=== PATIENT | female | born 1960 | race Caucasian/White ===

== ENCOUNTER 2016-09-27 16:43 | Inpatient (IN) | payer MEDICARE, MEDICAID ==
[~2016-09-27] VITALS: Ht 162.6 cm; Wt 70.9 kg
[2016-09-27] MEDS ORDERED: SODIUM CHLORIDE FLUSH 10ML SYR IVF ONE (17:00)
[2016-09-27] MEDS ORDERED: SODIUM CHLORIDE 0.9% 1,000ML IVBOLUS ONE (17:00)
[2016-09-27] MEDS ORDERED: ASPI-496 PO (17:27)
[2016-09-27] MEDS ORDERED: ATOR40TA78 PO (17:29)
[2016-09-27] MEDS ORDERED: BACL-19 PO (17:29)
[2016-09-27] MEDS ORDERED: FING0.5C3 PEG (17:29)
[2016-09-27] MEDS ORDERED: LISI5TAB7 PO (17:29)
[2016-09-27] MEDS ORDERED: GABA-826 PO (17:29)
[2016-09-27] MEDS ORDERED: PLEASE ENTER HEIGHT AND WEIGHT MC SCH (17:30)
[2016-09-27] MEDS ORDERED: TRAZ50TA18 PO (17:30)
[2016-09-27] MEDS ORDERED: CHOL2000 PO (17:30)
[2016-09-27] MEDS ORDERED: DIPH25CA61 PO (17:30)
[2016-09-27 17:38] LABS: BLOOD UREA NITROGEN 33 mg/dL (7-18)
[2016-09-27 17:41] LABS: ASPARTATE AMINO TRANSFERASE 31 U/L (15-37)
[2016-09-27 17:49] LABS: ACETAMINOPHEN < 2 mcg/mL (10-30)
[2016-09-27] MEDS ORDERED: SODIUM CHLORIDE FLUSH 10ML SYR IVF PRN (18:30)
[2016-09-27] MEDS ORDERED: DOCUSATE 100 MG CAPSULE PO PRN (19:00)
[2016-09-27] MEDS ORDERED: ACETAMINOPHEN 325 MG TABLET PO PRN (19:00)
[2016-09-27] MEDS ORDERED: POLYETHYLENE GLYCOL 17 GM PACKET PO PRN (19:00)
[2016-09-27] MEDS ORDERED: ONDANSETRON 2MG/ML, 2ML IVPush PRN (19:00)
[2016-09-27] MEDS ORDERED: morphine SULFATE 10 MG/ML, 1ML IVPush PRN (19:00)
[2016-09-27] MEDS ORDERED: BISACODYL 10 MG SUPP PR PRN (19:00)
[2016-09-27] MEDS ORDERED: LABETALOL 5MG/ML 40ML VIAL IVPush PRN (19:00)
[2016-09-27] MEDS ORDERED: NS + 20MEQ KCL 1,000 ML IV SCH (21:30)
[2016-09-27] MEDS ORDERED: OXYB5TAB PO (21:46)
[2016-09-27] MEDS: ENOXAPARIN 40 MG/0.4 ML SQ SCH (21:52)
[2016-09-27 22:13] VITALS: BP 128/77
[2016-09-27] MEDS: LORazepam 1MG TABLET PO PRN (23:23)
[2016-09-28] MEDS: LACTULOSE 20 GM/30 ML UDC PO SCH ×2 (02:18→09:58)
[2016-09-28 03:26] VITALS: BP 131/79
[2016-09-28 03:27] LABS: DAU SCREEN DISCLAIMER
[2016-09-28 06:20] LABS: BLOOD UREA NITROGEN 31 mg/dL (7-18)
[2016-09-28 07:15] VITALS: BP 126/76
[2016-09-28 12:24] VITALS: BP 144/87
[2016-09-28] MEDS ORDERED: BACLOFEN 10 MG TABLET PO SCH (16:30)
[2016-09-28] MEDS: ASPIRIN 81 MG TABLET EC PO SCH (17:43)
[2016-09-28] MEDS: FINGOLIMOD HCL 0.5 MG PEG SCH (17:44)
[2016-09-28] MEDS: LISINOPRIL 5 MG TABLET PO SCH (17:45)
[2016-09-28 19:09] VITALS: BP 149/77
[2016-09-28] MEDS: OXYBUTYNIN CHLORIDE 5 MG HOMEMEDPO SCH (20:41)
[2016-09-28] MEDS: ATORVASTATIN 40 MG TABLET HOMEMEDPO SCH (20:42)
[2016-09-28] MEDS: GABAPENTIN 100 MG CAPSULE HOMEMEDPO SCH (20:43)
[2016-09-28] MEDS: AMOXICILLIN 500 MG CAPSULE HOMEMEDPO SCH (20:44)
[2016-09-28] MEDS: TRAZODONE 50MG TABLET HOMEMEDPO SCH (21:00)
[2016-09-28] MEDS: BACLOFEN 10 MG TABLET HOMEMEDPO SCH (21:00)
[2016-09-28] MEDS: ENOXAPARIN 40 MG/0.4 ML SQ SCH (22:40)
[2016-09-28 23:23] VITALS: BP 129/72
[2016-09-29 03:07] VITALS: BP 130/74
[2016-09-29] MEDS: AMOXICILLIN 500 MG CAPSULE HOMEMEDPO SCH ×3 (03:26→18:15)
[2016-09-29 06:04] LABS: BLOOD UREA NITROGEN 26 mg/dL (7-18)
[2016-09-29 07:10] VITALS: BP 123/79
[2016-09-29] MEDS: BACLOFEN 10 MG TABLET HOMEMEDPO SCH ×3 (09:00→20:57)
[2016-09-29] MEDS: GABAPENTIN 100 MG CAPSULE HOMEMEDPO SCH ×2 (09:00→20:57)
[2016-09-29] MEDS: LISINOPRIL 5 MG TABLET PO SCH (09:00)
[2016-09-29] MEDS: OXYBUTYNIN CHLORIDE 5 MG HOMEMEDPO SCH ×2 (09:00→20:59)
[2016-09-29] MEDS: FINGOLIMOD HCL 0.5 MG PEG SCH (09:00)
[2016-09-29] MEDS: ASPIRIN 81 MG TABLET EC PO SCH (09:05)
[2016-09-29] MEDS: CHOLECALCIFEROL 1,000 UNIT TABLET PO SCH (09:05)
[2016-09-29] MEDS: LORazepam 1MG TABLET PO PRN (12:18)
[2016-09-29] MEDS: HYDROcodone/APAP 5/325 TABLET PO PRN (12:19)
[2016-09-29] MEDS ORDERED: GADOBUTROL 7.5 MMOL/7.5 ML PFS ONE (17:06)
[2016-09-29 19:04] VITALS: BP 146/70
[2016-09-29] MEDS: TRAZODONE 50MG TABLET HOMEMEDPO SCH (20:56)
[2016-09-29] MEDS: ATORVASTATIN 40 MG TABLET HOMEMEDPO SCH (20:58)
[2016-09-29] MEDS: ENOXAPARIN 40 MG/0.4 ML SQ SCH (20:59)
[2016-09-30] MEDS: HYDROcodone/APAP 5/325 TABLET PO PRN (00:03)
[2016-09-30] MEDS: LORazepam 1MG TABLET PO PRN (00:03)
[2016-09-30] MEDS: AMOXICILLIN 500 MG CAPSULE HOMEMEDPO SCH ×4 (00:20→19:00)
[2016-09-30 02:00] VITALS: BP 121/69
[2016-09-30 06:50] VITALS: BP 138/78
[2016-09-30] MEDS: ASPIRIN 81 MG TABLET EC PO SCH (08:47)
[2016-09-30] MEDS: CHOLECALCIFEROL 1,000 UNIT TABLET PO SCH (08:47)
[2016-09-30] MEDS: OXYBUTYNIN CHLORIDE 5 MG HOMEMEDPO SCH ×2 (08:49→20:03)
[2016-09-30] MEDS: BACLOFEN 10 MG TABLET HOMEMEDPO SCH ×3 (08:50→20:04)
[2016-09-30] MEDS: GABAPENTIN 100 MG CAPSULE HOMEMEDPO SCH ×2 (08:52→20:05)
[2016-09-30] MEDS: FINGOLIMOD HCL 0.5 MG PEG SCH (08:53)
[2016-09-30] MEDS: LISINOPRIL 5 MG TABLET PO SCH (08:54)
[2016-09-30 12:55] VITALS: BP 134/72
[2016-09-30 18:28] VITALS: BP 127/71
[2016-09-30] MEDS: ATORVASTATIN 40 MG TABLET HOMEMEDPO SCH (20:05)
[2016-09-30] MEDS: ENOXAPARIN 40 MG/0.4 ML SQ SCH (20:05)
[2016-09-30] MEDS: TRAZODONE 50MG TABLET HOMEMEDPO SCH (21:00)
[2016-09-30] MEDS: DIPHENHYDRAMINE 25 MG CAPSULE PO PRN (21:30)
[2016-10-01] MEDS: AMOXICILLIN 500 MG CAPSULE HOMEMEDPO SCH ×2 (00:58→07:00)
[2016-10-01 01:27] VITALS: BP 113/58
[2016-10-01 07:35] VITALS: BP 126/73
[2016-10-01] MEDS: GABAPENTIN 100 MG CAPSULE HOMEMEDPO SCH ×2 (09:00→21:00)
[2016-10-01] MEDS: OXYBUTYNIN CHLORIDE 5 MG HOMEMEDPO SCH ×2 (09:00→21:00)
[2016-10-01] MEDS: LISINOPRIL 5 MG TABLET PO SCH (09:00)
[2016-10-01] MEDS: FINGOLIMOD HCL 0.5 MG PEG SCH (09:00)
[2016-10-01] MEDS: BACLOFEN 10 MG TABLET HOMEMEDPO SCH ×3 (09:00→21:00)
[2016-10-01] MEDS: CHOLECALCIFEROL 1,000 UNIT TABLET PO SCH (09:26)
[2016-10-01] MEDS ORDERED: OMNIPAQUE 350 MG/ML, 100ML BOTTLE ONE (09:26)
[2016-10-01] MEDS: ASPIRIN 81 MG TABLET EC PO SCH (09:26)
[2016-10-01 14:00] VITALS: BP 126/76
[2016-10-01] MEDS ORDERED: BISACODYL 10 MG SUPP PR PRN (20:00)
[2016-10-01] MEDS ORDERED: ACETAMINOPHEN 325 MG TABLET PO PRN (20:00)
[2016-10-01] MEDS ORDERED: POLYETHYLENE GLYCOL 17 GM PACKET PO PRN (20:00)
[2016-10-01 20:50] VITALS: BP 136/79
[2016-10-01] MEDS: ATORVASTATIN 40 MG TABLET HOMEMEDPO SCH (21:00)
[2016-10-01] MEDS: TRAZODONE 50MG TABLET HOMEMEDPO SCH (21:00)
[2016-10-01] MEDS: ENOXAPARIN 40 MG/0.4 ML SQ SCH (21:53)
[2016-10-01] MEDS: DIPHENHYDRAMINE 25 MG CAPSULE PO PRN (21:59)
[2016-10-02 01:57] VITALS: BP 125/73
[2016-10-02 07:49] VITALS: BP 130/79
[2016-10-02] MEDS: CHOLECALCIFEROL 1,000 UNIT TABLET PO SCH (09:31)
[2016-10-02] MEDS: ASPIRIN 81 MG TABLET EC PO SCH (09:32)
[2016-10-02] MEDS: BACLOFEN 10 MG TABLET HOMEMEDPO SCH ×3 (09:33→21:00)
[2016-10-02] MEDS: OXYBUTYNIN CHLORIDE 5 MG HOMEMEDPO SCH ×2 (09:33→21:00)
[2016-10-02] MEDS: GABAPENTIN 100 MG CAPSULE HOMEMEDPO SCH ×2 (09:34→21:00)
[2016-10-02] MEDS: FINGOLIMOD HCL 0.5 MG PEG SCH (09:34)
[2016-10-02] MEDS: LISINOPRIL 5 MG TABLET PO SCH (09:34)
[2016-10-02 13:45] VITALS: BP 128/77
[2016-10-02 19:35] VITALS: BP 151/83
[2016-10-02] MEDS: ATORVASTATIN 40 MG TABLET HOMEMEDPO SCH (21:00)
[2016-10-02] MEDS: TRAZODONE 50MG TABLET HOMEMEDPO SCH (21:00)
[2016-10-02] MEDS: ENOXAPARIN 40 MG/0.4 ML SQ SCH (21:07)
[2016-10-02] MEDS: DIPHENHYDRAMINE 25 MG CAPSULE PO PRN (21:07)
[2016-10-03 01:55] VITALS: BP 134/77
[2016-10-03 03:29] VITALS: BP 126/74
[2016-10-03 07:38] VITALS: BP 133/73
[2016-10-03] MEDS: ASPIRIN 81 MG TABLET EC PO SCH (07:58)
[2016-10-03] MEDS: CHOLECALCIFEROL 1,000 UNIT TABLET PO SCH (07:58)
[2016-10-03] MEDS: BACLOFEN 10 MG TABLET HOMEMEDPO SCH (07:59)
[2016-10-03] MEDS: LISINOPRIL 5 MG TABLET PO SCH (07:59)
[2016-10-03] MEDS: GABAPENTIN 100 MG CAPSULE HOMEMEDPO SCH ×2 (07:59→21:00)
[2016-10-03] MEDS: FINGOLIMOD HCL 0.5 MG PEG SCH (08:00)
[2016-10-03] MEDS: OXYBUTYNIN CHLORIDE 5 MG HOMEMEDPO SCH ×2 (08:00→21:00)
[2016-10-03] MEDS ORDERED: PRED10TA PO (12:52)
[2016-10-03] MEDS: BACLOFEN 10 MG TABLET PO SCH ×2 (16:28→21:07)
[2016-10-03] MEDS: TRAZODONE 50MG TABLET HOMEMEDPO SCH (21:00)
[2016-10-03] MEDS: ATORVASTATIN 40 MG TABLET HOMEMEDPO SCH (21:00)
[2016-10-03] MEDS: ENOXAPARIN 40 MG/0.4 ML SQ SCH (21:06)
[2016-10-03] MEDS: DIPHENHYDRAMINE 25 MG CAPSULE PO PRN (21:18)
[2016-10-03 21:44] VITALS: BP 146/75
[2016-10-04 06:58] VITALS: BP 141/78
[2016-10-04] MEDS: OXYBUTYNIN CHLORIDE 5 MG HOMEMEDPO SCH (09:14)
[2016-10-04] MEDS: GABAPENTIN 100 MG CAPSULE HOMEMEDPO SCH (09:14)
[2016-10-04] MEDS: ASPIRIN 81 MG TABLET EC PO SCH (09:14)
[2016-10-04] MEDS: BACLOFEN 10 MG TABLET PO SCH (09:14)
[2016-10-04] MEDS: CHOLECALCIFEROL 1,000 UNIT TABLET PO SCH (09:14)
[2016-10-04] MEDS: LISINOPRIL 5 MG TABLET PO SCH (09:15)
[2016-10-04] MEDS: FINGOLIMOD HCL 0.5 MG PEG SCH (09:15)
== END 2016-10-04 11:50 | disposition home or self-care (01) | DRG 60 ==
LOC: ED 19:39 → EDIP 21:08 → 4EST 21:16 → 4WST 09-29 13:21
PROVIDERS: ADMIT Internal Medicine; ATTEND Internal Medicine
DX: G35 Multiple sclerosis (principal); R27.0 Ataxia, unspecified; I11.9 Hypertensive heart disease without heart failure; R47.81 Slurred speech; F31.9 Bipolar disorder, unspecified; R29.2 Abnormal reflex; F20.9 Schizophrenia, unspecified; Z90.49 Acquired absence of other specified parts of digestive tract; Z79.82 Long term (current) use of aspirin; Z86.73 Personal history of transient ischemic attack (TIA), and cerebral infarction without residual deficits; Z90.89 Acquired absence of other organs; Z98.51 Tubal ligation status; Z88.5 Allergy status to narcotic agent; G31.9 Degenerative disease of nervous system, unspecified; M79.661 Pain in right lower leg; R79.89 Other specified abnormal findings of blood chemistry
CPT/HCPCS: 36415; 70450; 70498; 70544; 70547; 70553; 71010; 72156; 72157; 72158; 80048; 80053; 80307; 80329; 81003; 82140; 82607; 82746; 83735; 84443; 85025; 85610; 85651; 85730; 93005; 93306; 96360; 96361; A9585; J1650; J2930; J3480; Q9967; G0480; J7030; Q0163

== ENCOUNTER 2018-06-06 12:02 | Inpatient (IN) | payer MEDICARE, MEDICAID ==
[~2018-06-06] VITALS: Ht 162.6 cm; Wt 61.6 kg
[~2018-06-06 12:02] MED LIST: ASPI-496 PO; ATOR40TA78 PO; BACL-19 PO; CHOL2000 PO; DIPH25CA61 PO; FING0.5C3 PEG; GABA-826 PO; LISI5TAB7 PO; OXYB5TAB PO; PRED10TA PO; TRAZ50TA66 PO
--- NOTE | 2018-06-06 12:50 | NUR ---
pt presented to ed with daughters. per daughters, pt was walking and developled left leg drag since 11:00 am. Per daughters pt was more altered. pt with hx: ms and previous cva. pt a&ox4. pt with michelle and she stating " i just dont feel like im all there. code neuro called and md at bedside.
[2018-06-06 13:12] LABS: INTERNATIONAL NORMALIZED RATIO 0.92 (0.93-1.1); PROTHROMBIN TIME 9.7 Seconds (9.6-11.5)
--- NOTE | 2018-06-06 13:20 | NUR ---
LATE ENTRY: 1253-PT TAKEN TO CT SCAN. 1320-PT BACK FROM CT SCAN. DR. LUZ ON NEURO ROBOT. PT PLACED BACK ON BP, CARDIAC AND CONT. PULSE OXIMETER.
[2018-06-06] MEDS ORDERED: OMNIPAQUE 350 MG/ML, 100ML BOTTLE ONE (13:22)
[2018-06-06 13:39] LABS: BASOPHILS # (AUTO) 0.02 x10^3/uL (0-0.1); BASOPHILS % (AUTO) 0 % (0-1); EOSINOPHILS # (AUTO) 0.05 x10^3/uL (0-0.4); EOSINOPHILS % (AUTO) 1 % (1-7); LYMPHOCYTES # (AUTO) 0.73 x10^3/uL (1-3.4); LYMPHOCYTES % (AUTO) 15 % (22-44); MD SCAN; MEAN CORPUSCULAR HEMOGLOBIN 30.1 pg (27.0-34.8); MEAN CORPUSCULAR HGB CONC 32.8 g/dL (32.4-35.8); MEAN CORPUSCULAR VOLUME 91.6 fL (80-100); MEAN PLATELET VOLUME 11.7 fL (7.4-10.4); MONOCYTES # (AUTO) 0.52 x10^3/uL (0.2-0.8); MONOCYTES % (AUTO) 11 % (2-9); NEUTROPHILS # (AUTO) 3.67 x10^3/uL (1.8-6.8); NEUTROPHILS % (AUTO) 74 % (42-75); RED BLOOD COUNT 4.56 x10^6/uL (3.82-5.3); RED CELL DISTRIBUTION WIDTH 13.3 % (9.6-15.2)
--- NOTE | 2018-06-06 13:41 | NUR ---
FLOAT RN, COVERING MEAL BREAK. VSS/UPDATED IN COMPUTER. BEDPAN REMOVED, OUTPUT RECORDED. 2ND IV ESTABLISHED/SL. PT AND FAMILY COOPERATIVE WITH CARE, NO COMPLAINTS OR DISTRESS AT THIS TIME. PT STATES PAIN IS O/10. CALL LIGHT WITHIN REACH.
[2018-06-06 13:44] LABS: PLATELET COUNT 34 x10^3/uL (130-400)
--- NOTE | 2018-06-06 13:51 | NUR ---
PT MOVED TO ROOM 19 FROM [facility]
--- NOTE | 2018-06-06 14:12 | NUR ---
PT GIVEN WATER AND PASSED SWALLOW EVAL.
--- NOTE | 2018-06-06 14:16 | NUR ---
LAB INTO DRAW PT
--- NOTE | 2018-06-06 17:04 | NUR ---
PT IN BED, NAD, NO NEEDS AT THIS TIME, PT AWARE THAT US NEEDED, BEDSIDE COMMODE BROUGHT INTO ROOM.
[2018-06-06 17:45] LABS: ALBUMIN 3.9 g/dL (3.4-5.0); BILIRUBIN, DIRECT 0.1 mg/dL (0.1-0.2)
[2018-06-06 17:48] LABS: BILIRUBIN,INDIRECT 0.5 mg/dL (0.0-2.0); BILIRUBIN,TOTAL 0.6 mg/dL (0.2-1.0); TOTAL PROTEIN 6.5 g/dL (6.4-8.2)
--- NOTE | 2018-06-06 18:00 | NUR ---
RECEIVED REPORT FROM EDWARD RAMIREZ.
--- NOTE | 2018-06-06 18:32 | NUR ---
PT RESTING ON [employer]. VSS. PER ERP DR. SUSANNA NEWMAN FOR PT TO HAVE SIPS OF WATER.
[2018-06-06 18:45] LABS: CULTURE INDICATED? YES; MICROSCOPIC INDICATED
--- NOTE | 2018-06-06 19:02 | NUR ---
BEDSIDE REPORT GIVEN TO MADDY DELGADO RN.
--- NOTE | 2018-06-06 19:07 | NUR ---
REPORT RECEIVED FROM EDWARD GARG. ASSUMED CARE OF PT. PT STATES FEELING BETTER THAN WHEN SHE CAME IN. PT HAS MS AND HAD A BAD DAY. PT REQUESTING FOOD, STATES VERY HUNGRY, WILL TALK TO MD. PT AA&O, NO DISTRESS NOTED, NO COMPLAINTS OTHER THAN WANTING FOOD. CALL LIGHT IN REACH
--- NOTE | 2018-06-06 19:22 | NUR ---
REPORT GIVEN TO EDWARD RICH
[2018-06-06 20:16] VITALS: BP 158/90
[2018-06-06] MEDS ORDERED: SIMETHICONE 125 MG CHEW TAB PO PRN (21:00)
[2018-06-06] MEDS ORDERED: ENALAPRILAT 1.25 MG/ML, 2ML IV PRN (21:00)
[2018-06-06] MEDS ORDERED: ONDANSETRON 2MG/ML, 2ML IVPush PRN (21:00)
[2018-06-06] MEDS ORDERED: BISACODYL 10 MG SUPP PR PRN (21:00)
[2018-06-06] MEDS ORDERED: TOPI15CA4 PO (21:34)
[2018-06-07 00:34] VITALS: BP 104/55
[2018-06-07] MEDS: TRAZODONE 50MG TABLET PO SCH ×2 (00:49→19:58)
[2018-06-07] MEDS: ATORVASTATIN 40 MG TABLET PO SCH ×2 (00:49→19:58)
[2018-06-07] MEDS: TOPIRAMATE 100 MG TABLET PO SCH ×2 (00:49→19:58)
[2018-06-07] MEDS: BACLOFEN 10 MG TABLET PO SCH ×4 (00:49→19:58)
[2018-06-07 04:00] VITALS: BP 143/76
[2018-06-07 05:47] LABS: CHLORIDE 113 mmol/L (98-107)
[2018-06-07 05:53] LABS: MEAN CORPUSCULAR HEMOGLOBIN 30.4 pg (27.0-34.8); MEAN CORPUSCULAR HGB CONC 33.1 g/dL (32.4-35.8); MEAN CORPUSCULAR VOLUME 91.8 fL (80-100); RED BLOOD COUNT 4.06 x10^6/uL (3.82-5.3)
[2018-06-07 05:59] LABS: ALANINE AMINOTRANSFERASE 31 U/L (12-78); ALBUMIN 3.5 g/dL (3.4-5.0); ALKALINE PHOSPHATASE 118 U/L (45-117); ANION GAP 7 mmol/L (5-15); BILIRUBIN,TOTAL 0.3 mg/dL (0.2-1.0); CALCIUM 8.3 mg/dL (8.5-10.1); CHOL/HDL RATIO 1.9; CHOLESTEROL, TOTAL 104 mg/dL (140-239); CREATININE 0.74 mg/dL (0.55-1.02); HDL CHOL % 54 % (28-40); HDL CHOLESTEROL (DIRECT) 56 mg/dL (40-60); LDL CHOLESTEROL,CALCULATED 38 mg/dL (54-169); LDL/HDL RATIO 0.7 (0.5-3.0); TOTAL PROTEIN 5.7 g/dL (6.4-8.2); TRIGLYCERIDES 51 mg/dL (50-200); VLDL CHOLESTEROL 10 mg/dL (0-25)
[2018-06-07 07:19] LABS: MEAN PLATELET VOLUME 11.5 fL (7.4-10.4)
[2018-06-07 07:27] LABS: PLATELET COUNT 32 x10^3/uL (130-400)
[2018-06-07 07:29] LABS: MD SCAN
[2018-06-07 07:30] LABS: BASOPHILS # (AUTO) 0.01 x10^3/uL (0-0.1); BASOPHILS % (AUTO) 0 % (0-1); EOSINOPHILS # (AUTO) 0.12 x10^3/uL (0-0.4); EOSINOPHILS % (AUTO) 2 % (1-7); LYMPHOCYTES # (AUTO) 0.61 x10^3/uL (1-3.4); LYMPHOCYTES % (AUTO) 13 % (22-44); MONOCYTES # (AUTO) 0.44 x10^3/uL (0.2-0.8); MONOCYTES % (AUTO) 9 % (2-9); NEUTROPHILS # (AUTO) 3.62 x10^3/uL (1.8-6.8); NEUTROPHILS % (AUTO) 76 % (42-75)
[2018-06-07 07:57] VITALS: BP 136/71
[2018-06-07] MEDS ORDERED: ASPIRIN 81 MG TABLET CHEW PO/NG SCH (09:00)
[2018-06-07] MEDS: CHOLECALCIFEROL 1,000 UNIT TABLET PO SCH (09:53)
[2018-06-07] MEDS: GABAPENTIN 100 MG CAPSULE PO SCH ×2 (09:53→19:58)
[2018-06-07] MEDS: FINGOLIMOD HCL 0.5 MG PEG SCH (09:55)
[2018-06-07] MEDS ORDERED: GADOBUTROL 7.5 MMOL/7.5 ML PFS ONE (10:57)
[2018-06-07 11:44] VITALS: BP 144/77
[2018-06-07] MEDS: ACETAMINOPHEN 325 MG TABLET PO PRN ×2 (13:48→20:31)
[2018-06-07 16:30] VITALS: BP 133/76
[2018-06-07] MEDS ORDERED: MAALOX/HYOSCYAMINE/LIDOCAINE 45 ML BTL PO ONE (18:00)
[2018-06-07] MEDS: OMEPRAZOLE 20 MG CAPSULE.DR PO SCH (18:26)
[2018-06-07 19:04] VITALS: BP 133/82
[2018-06-08 00:48] VITALS: BP 128/76
[2018-06-08 02:21] VITALS: BP 114/73
[2018-06-08 03:34] VITALS: BP 143/76
[2018-06-08] MEDS ORDERED: OMEPRAZOLE 20 MG CAPSULE.DR PO SCH (06:00)
[2018-06-08] MEDS: OMEPRAZOLE 20 MG CAPSULE.DR PO SCH (06:10)
[2018-06-08 07:20] VITALS: BP 132/81
[2018-06-08] MEDS ORDERED: OMEP-110 PO (08:20)
[2018-06-08] MEDS: BACLOFEN 10 MG TABLET PO SCH (09:26)
[2018-06-08] MEDS: GABAPENTIN 100 MG CAPSULE PO SCH (09:26)
[2018-06-08] MEDS: CHOLECALCIFEROL 1,000 UNIT TABLET PO SCH (09:27)
[2018-06-08] MEDS: FINGOLIMOD HCL 0.5 MG PEG SCH (09:27)
== END 2018-06-08 10:57 | disposition home or self-care (01) | DRG 58 ==
LOC: ED 18:09 → EDIP 18:10 → ED 18:22 → 4WST 20:00 → 4EST 06-07 21:20
PROVIDERS: ADMIT Family Medicine; ATTEND Family Medicine
DX: G35 Multiple sclerosis (principal); G93.41 Metabolic encephalopathy; R53.2 Functional quadriplegia; G45.9 Transient cerebral ischemic attack, unspecified; I11.9 Hypertensive heart disease without heart failure; K59.00 Constipation, unspecified; K80.20 Calculus of gallbladder without cholecystitis without obstruction; F20.9 Schizophrenia, unspecified; F31.9 Bipolar disorder, unspecified; D69.6 Thrombocytopenia, unspecified; Z87.891 Personal history of nicotine dependence; Z90.89 Acquired absence of other organs; Z98.51 Tubal ligation status; Z88.6 Allergy status to analgesic agent; Z86.73 Personal history of transient ischemic attack (TIA), and cerebral infarction without residual deficits
CPT/HCPCS: 36415; 70450; 70496; 70498; 70553; 74176; 76700; 80047; 80053; 80061; 80076; 81001; 82962; 83605; 83690; 85025; 85610; 85730; 87086; 93005; 99291; A9585; G0378; J2405; Q9967